=== PATIENT | female | born 1975 | race Caucasian/White ===

== ENCOUNTER 2016-12-06 10:09 | Emergency (ER) | payer OTHER ==
--- NOTE | 2016-12-06 11:09 | ED NURSING NOTES ---
Clinical Report - Nurses Merged With [facility] [address] [place] [address] 12/06/2016 10:11 Patient: JERMAINE XAVIER [facility]#: [id number] TRIAGE Triage time 10:16 Dec 06 2016. Acuity: LEVEL 3. Chief Complaint: LEFT LOWER TOOTHACHE and CHIPPED TOOTH and JAW PAIN and SWELLING OF JAW / FACE. JAVI COMA SCORE: [place] Coma Scale: 15- eyes open spontaneously (4); best verbal response- oriented x 4 (5); best motor response- obeys commands (6). --10:21 Maria T Raymundo R.N. 10:16 12/06/16. BP: 153/84. HR: 106. RR: 18. O2 saturation: 100%. Temp: 99.4 F. Pain level now 11/05. --10:21 Maria T Raymundo R.N. Weight: 63.5 kg stated. Height/Length: 69 inches Per Patient. BMI: 20.7. --10:18 Maria T Raymundo R.N. Medications Effexor XR Oral 150 mg, q day. --10:16 Maria T Raymundo R.N. Albuterol Sulfate ER Oral. --10:17 Maria T Raymundo R.N. Zofran ODT Oral. --10:17 Maria T Raymundo R.N. Calcium + D Oral. --10:17 Maria T Raymundo R.N. Allergies No Known Drug Allergy. --10:16 Maria T Raymundo R.N. History Arrived by private vehicle. Historian: patient. Accompanied by family. ( Couple months of lump under jaw and hole in tooth. Then 3 days ago pain increased and today she put a q-tip in the hole and it popped and puss began to come out.). She has had mouth sores and ear pain. Reports enlarged lymph nodes. No fever or sinus pain. She has had a toothache and swelling of the jaw. Treatment VENEER REDRIER: None. PAST MEDICAL HX: Strep throat. Dental caries. Abscess. No history of mononucleosis. Immunizations: up-to-date. Last normal menstrual period- due now. Uses an intrauterine device. SOCIAL HX: Light tobacco smoker (cigarette)- less than 1/2 a pack per day. History of drug use: marijuana. No alcohol use. SELF HARM ASSESSMENT: A self harm assessment was performed. The patient answered "no" to the question "Have you recently felt down, depressed, or hopeless?" and "Do you have thoughts of harming or killing yourself?". FALL RISK ASSESSMENT: Fall risk assessment completed. No fall risk identified. NUTRITIONAL RISK ASSESSMENT: The nutritional risk assessment revealed no deficiencies. FUNCTIONAL ASSESSMENT: Functional assessment: no impairments noted. LEARNING NEEDS ASSESSMENT: The learning needs assessment revealed no barriers. ABUSE ASSESSMENT: Abuse assessment: (yes) The patient was asked "Do you feel safe in your home?". SKIN INTEGRITY ASSESSMENT: Skin integrity risk assessment completed. No skin integrity risk identified. --10:21 Maria T Raymundo R.N. Interventions ID band on patient. --10:21 Maria T Raymundo R.N. PHYSICAL ASSESSMENT Ambulatory to room. GENERAL / NEURO / PSYCH: Alert. Oriented X 4. Appears in no acute distress. HEENT: Pupils equal, round and reactive to light. Pharynx within normal limits. Voice within normal limits. Dental decay. Mucous membranes are pink. RESPIRATORY: Respirations not labored. CVS: Capillary refill less than 2 seconds. SKIN: Skin is warm and dry. Normal skin turgor. --10:21 Maria T Raymundo R.N. NURSING PROGRESS NOTES The initial plan of care for this patient includes an assessment with efforts to address patient positioning and appropriate ambient lighting. Pulse oximeter and NIBP monitor placed on patient. Head of bed elevated 90 degrees. Reassurance given. Call light placed in reach. Side rails up x 1. Bed placed in lowest position. Brakes of bed on. --10:21 Maria T Raymundo R.N. DISPOSITION / DISCHARGE Condition at departure: stable. No learning barriers present. Discharge instructions provided and reviewed with the patient. Reviewed medication(s) side effects, precautions, dosing and course information. Prescription(s) given to the patient. Patient verbalized understanding. Written instructions provided in Amharic. The patient was discharged by the physician. She was discharged home. She left the Emergency Department ambulatory and via private vehicle. Patient driving. --11:22 Sheriff Vieyra R.N. Locked/Released at 12/06/2016 11:23 by Sheriff Vieyra R.N.
--- NOTE | 2016-12-06 11:09 | ED CLINICAL REPORT ---
Clinical Report - Physicians/Mid Levels [facility] [address] [place] [address] 12/06/2016 10:11 [id number] Time Seen: 10:57 Dec 06 2016. Arrived- By private vehicle. Historian- patient. CPT: ER phys charges level 3 (#[id number]). HISTORY OF PRESENT ILLNESS Chief Complaint: DENTAL PAIN. (Poked gum and a lot of purulent drainage came out. ( Couple months of lump under jaw and hole in tooth. Then 3 days ago pain increased and today she put a q-tip in the hole and it popped and puss began to come out.). She has had mouth sores and ear pain. Reports enlarged lymph nodes. No fever or sinus pain. She has had a toothache and swelling of the jaw.). Is still present but is improving. Pain described as moderate. No sore throat. She has had toothache (for 3 months). She has had swelling of the jaw (for 3 days). Similar symptoms previously: As bad. Diagnosed as dental abscess. Recent medical care: Not recently seen/assessed. REVIEW OF SYSTEMS No fever, eye discomfort, cough, difficulty breathing or chest pain. No nausea, headache, joint pain, skin rash or enlarged lymph nodes. No vomiting. All systems otherwise negative, except as recorded above. PAST HISTORY hx dental abscesses. Medications: Calcium + D Oral. Zofran ODT Oral. Albuterol Sulfate ER Oral. Effexor XR Oral 150 mg, q day. Allergies: No Known Drug Allergy. SOCIAL HISTORY Heavy tobacco smoker (cigarette)- less than 1 pack per day. History of occasional drug use: marijuana. No alcohol use. ADDITIONAL NOTES The nursing notes have been reviewed. PHYSICAL EXAM Vital Signs: 12/06/2016 10:16 BP: 153/84. HR: 106. RR: 18. O2 saturation: 100%. Temp: 99.4 F. Appearance: Alert. Patient in mild distress. Head: Mild swelling of the left maxilla. Eyes: Pupils equal, round and reactive to light. ENT: Moderate, localized dental decay with gingival tenderness and induration (lower left first molar). Pharynx normal. Lips normal. Gums normal. Uvula midline. Neck: Trachea midline. No adenopathy. CVS: Normal heart rate and rhythm. Heart sounds normal. Pulses normal. No cardiac murmur. Respiratory: No respiratory distress. Skin: Normal skin color. No rash. Extremities: Extremities nontender. Neuro: Oriented X 3. No motor deficit. No sensory deficit. PROGRESS AND PROCEDURES Course of Care: Pt already drained the majority of the abscess at home. Will need antibiotics and oral rinses. Needs dental follow for appropriate imaging and treatment of the tooth. Patient/family counseled. Disposition: Discharged. Condition: stable. CLINICAL IMPRESSION Periapical dental abscess with sinus tract. INSTRUCTIONS Apply moist heat for 15-20 minutes three times a day for five days until better. Warnings: Further evaluation is necessary. GENERAL WARNINGS: Return or contact your physician immediately if your condition worsens or changes unexpectedly, if not improving as expected, or if other problems arise. Your Current Medications: CONTINUE TAKING THE FOLLOWING MEDICATIONS: Albuterol Sulfate ER Oral. Calcium + D Oral. Effexor XR Oral : 150 mg q day. Zofran ODT Oral. Prescription Medications: Hydrocodone/APAP 5mg/325mg: take 1 to 2 orally every 6 hours as needed for pain. Dispense fifteen (15). No refills. Penicillin V 500mg: take 1 tab orally every 6 hours for 10 days. Dispense forty (40). No refill Follow-up: Follow up with a dentist in one week. Call for an appointment. Understanding of the discharge instructions verbalized by patient. (Electronically signed by Jace Valentin MD 12/06/2016 20:00)
--- NOTE | 2016-12-06 11:09 | ED NURSING NOTES ---
Clinical Report - Nurses [facility] [address] [place] [address] 12/06/2016 10:11 Patient: JERMAINE XAVIER [facility]#: [id number] TRIAGE Triage time 10:16 Dec 06 2016. Acuity: LEVEL 3. Chief Complaint: LEFT LOWER TOOTHACHE and CHIPPED TOOTH and JAW PAIN and SWELLING OF JAW / FACE. JAVI COMA SCORE: [place] Coma Scale: 15- eyes open spontaneously (4); best verbal response- oriented x 4 (5); best motor response- obeys commands (6). --10:21 Maria T Raymundo R.N. 10:16 12/06/16. BP: 153/84. HR: 106. RR: 18. O2 saturation: 100%. Temp: 99.4 F. Pain level now 11/05. --10:21 Maria T Raymundo R.N. Weight: 63.5 kg stated. Height/Length: 69 inches Per Patient. BMI: 20.7. --10:18 Maria T Raymundo R.N. Medications Effexor XR Oral 150 mg, q day. --10:16 Maria T Raymundo R.N. Albuterol Sulfate ER Oral. --10:17 Maria T Raymundo R.N. Zofran ODT Oral. --10:17 Maria T Raymundo R.N. Calcium + D Oral. --10:17 Maria T Raymundo R.N. Allergies No Known Drug Allergy. --10:16 Maria T Raymundo R.N. History Arrived by private vehicle. Historian: patient. Accompanied by family. ( Couple months of lump under jaw and hole in tooth. Then 3 days ago pain increased and today she put a q-tip in the hole and it popped and puss began to come out.). She has had mouth sores and ear pain. Reports enlarged lymph nodes. No fever or sinus pain. She has had a toothache and swelling of the jaw. Treatment ANESTHESIOLOGY MEDICAL DOCTOR: None. PAST MEDICAL HX: Strep throat. Dental caries. Abscess. No history of mononucleosis. Immunizations: up-to-date. Last normal menstrual period- due now. Uses an intrauterine device. SOCIAL HX: Light tobacco smoker (cigarette)- less than 1/2 a pack per day. History of drug use: marijuana. No alcohol use. SELF HARM ASSESSMENT: A self harm assessment was performed. The patient answered "no" to the question "Have you recently felt down, depressed, or hopeless?" and "Do you have thoughts of harming or killing yourself?". FALL RISK ASSESSMENT: Fall risk assessment completed. No fall risk identified. NUTRITIONAL RISK ASSESSMENT: The nutritional risk assessment revealed no deficiencies. FUNCTIONAL ASSESSMENT: Functional assessment: no impairments noted. LEARNING NEEDS ASSESSMENT: The learning needs assessment revealed no barriers. ABUSE ASSESSMENT: Abuse assessment: (yes) The patient was asked "Do you feel safe in your home?". SKIN INTEGRITY ASSESSMENT: Skin integrity risk assessment completed. No skin integrity risk identified. --10:21 Maria T Raymundo R.N. Interventions ID band on patient. --10:21 Maria T Raymundo R.N. PHYSICAL ASSESSMENT Ambulatory to room. GENERAL / NEURO / PSYCH: Alert. Oriented X 4. Appears in no acute distress. HEENT: Pupils equal, round and reactive to light. Pharynx within normal limits. Voice within normal limits. Dental decay. Mucous membranes are pink. RESPIRATORY: Respirations not labored. CVS: Capillary refill less than 2 seconds. SKIN: Skin is warm and dry. Normal skin turgor. --10:21 Maria T Raymundo R.N. NURSING PROGRESS NOTES The initial plan of care for this patient includes an assessment with efforts to address patient positioning and appropriate ambient lighting. Pulse oximeter and NIBP monitor placed on patient. Head of bed elevated 90 degrees. Reassurance given. Call light placed in reach. Side rails up x 1. Bed placed in lowest position. Brakes of bed on. --10:21 Maria T Raymundo R.N. DISPOSITION / DISCHARGE Condition at departure: stable. No learning barriers present. Discharge instructions provided and reviewed with the patient. Reviewed medication(s) side effects, precautions, dosing and course information. Prescription(s) given to the patient. Patient verbalized understanding. Written instructions provided in Slovak. The patient was discharged by the physician. She was discharged home. She left the Emergency Department ambulatory and via private vehicle. Patient driving. --11:22 Sheriff Vieyra R.N. Locked/Released at 12/06/2016 11:23 by Sheriff Vieyra R.N.
--- NOTE | 2016-12-06 11:09 | ED CLINICAL REPORT ---
Clinical Report - Physicians/Mid Levels [facility] [address] [place] [address] 12/06/2016 10:11 [id number] Time Seen: 10:57 Dec 06 2016. Arrived- By private vehicle. Historian- patient. CPT: ER phys charges level 3 (#[id number]). HISTORY OF PRESENT ILLNESS Chief Complaint: DENTAL PAIN. (Poked gum and a lot of purulent drainage came out. ( Couple months of lump under jaw and hole in tooth. Then 3 days ago pain increased and today she put a q-tip in the hole and it popped and puss began to come out.). She has had mouth sores and ear pain. Reports enlarged lymph nodes. No fever or sinus pain. She has had a toothache and swelling of the jaw.). Is still present but is improving. Pain described as moderate. No sore throat. She has had toothache (for 3 months). She has had swelling of the jaw (for 3 days). Similar symptoms previously: As bad. Diagnosed as dental abscess. Recent medical care: Not recently seen/assessed. REVIEW OF SYSTEMS No fever, eye discomfort, cough, difficulty breathing or chest pain. No nausea, headache, joint pain, skin rash or enlarged lymph nodes. No vomiting. All systems otherwise negative, except as recorded above. PAST HISTORY hx dental abscesses. Medications: Calcium + D Oral. Zofran ODT Oral. Albuterol Sulfate ER Oral. Effexor XR Oral 150 mg, q day. Allergies: No Known Drug Allergy. SOCIAL HISTORY Heavy tobacco smoker (cigarette)- less than 1 pack per day. History of occasional drug use: marijuana. No alcohol use. ADDITIONAL NOTES The nursing notes have been reviewed. PHYSICAL EXAM Vital Signs: 12/06/2016 10:16 BP: 153/84. HR: 106. RR: 18. O2 saturation: 100%. Temp: 99.4 F. Appearance: Alert. Patient in mild distress. Head: Mild swelling of the left maxilla. Eyes: Pupils equal, round and reactive to light. ENT: Moderate, localized dental decay with gingival tenderness and induration (lower left first molar). Pharynx normal. Lips normal. Gums normal. Uvula midline. Neck: Trachea midline. No adenopathy. CVS: Normal heart rate and rhythm. Heart sounds normal. Pulses normal. No cardiac murmur. Respiratory: No respiratory distress. Skin: Normal skin color. No rash. Extremities: Extremities nontender. Neuro: Oriented X 3. No motor deficit. No sensory deficit. PROGRESS AND PROCEDURES Course of Care: Pt already drained the majority of the abscess at home. Will need antibiotics and oral rinses. Needs dental follow for appropriate imaging and treatment of the tooth. Patient/family counseled. Disposition: Discharged. Condition: stable. CLINICAL IMPRESSION Periapical dental abscess with sinus tract. INSTRUCTIONS Apply moist heat for 15-20 minutes three times a day for five days until better. Warnings: Further evaluation is necessary. GENERAL WARNINGS: Return or contact your physician immediately if your condition worsens or changes unexpectedly, if not improving as expected, or if other problems arise. Your Current Medications: CONTINUE TAKING THE FOLLOWING MEDICATIONS: Albuterol Sulfate ER Oral. Calcium + D Oral. Effexor XR Oral : 150 mg q day. Zofran ODT Oral. Prescription Medications: Hydrocodone/APAP 5mg/325mg: take 1 to 2 orally every 6 hours as needed for pain. Dispense fifteen (15). No refills. Penicillin V 500mg: take 1 tab orally every 6 hours for 10 days. Dispense forty (40). No refill Follow-up: Follow up with a dentist in one week. Call for an appointment. Understanding of the discharge instructions verbalized by patient. (Electronically signed by Jace Valentin MD 12/06/2016 20:00)
--- NOTE | 2016-12-06 20:00 | ED MED RECONCILIATION SUMMARY ---
Patient: JERMAINE XAVIER Medication Reconciliation Report [facility] VisitID: [id number] [address] [place] [address] 41y, F Registration Date/Time: 12/06/2016 Weight: 63.5 kg Height/Length: 69 in. BMI: 20.7 ALLERGIES: No Known Drug Allergy The patient's Home Medications are listed below: CONTINUE TAKING THE FOLLOWING MEDICATIONS: Albuterol Sulfate ER Oral Calcium + D Oral Effexor XR Oral 150 mg, q day Zofran ODT Oral The source(s) of the original Home Medication information: Not obtained. The following Medications were given to the patient in the Emergency Department: None. The following Medications were prescribed to the patient: Hydrocodone/APAP 5mg/325mg: take 1 to 2 orally every 6 hours as needed for pain. Dispense fifteen (15). No refills. -- Jace Valentin MD Penicillin V 500mg: take 1 tab orally every 6 hours for 10 days. Dispense forty (40). No refill -- Jace Valentin MD
--- NOTE | 2016-12-06 20:00 | ED DISCHARGE INSTRUCTIONS ---
Patient: JERMAINE XAVIER General Instructions [facility] VisitID: [id number] [place] [address] 41y, F Registration Date/Time: 12/06/2016 Periapical dental abscess with sinus tract. INSTRUCTIONS Apply moist heat for 15-20 minutes three times a day for five days until better. Warnings: Further evaluation is necessary. GENERAL WARNINGS: Return or contact your physician immediately if your condition worsens or changes unexpectedly, if not improving as expected, or if other problems arise. Your Current Medications: CONTINUE TAKING THE FOLLOWING MEDICATIONS: Albuterol Sulfate ER Oral. Calcium + D Oral. Effexor XR Oral : 150 mg q day. Zofran ODT Oral. Prescription Medications: Hydrocodone/APAP 5mg/325mg: take 1 to 2 orally every 6 hours as needed for pain. Dispense fifteen (15). No refills. Penicillin V 500mg: take 1 tab orally every 6 hours for 10 days. Dispense forty (40). No refill Follow-up: Follow up with a dentist in one week. Call for an appointment. Understanding of the discharge instructions verbalized by patient. ADDITIONAL INFORMATION Dental Abscess With Facial Cellulitis A dental abscess is an infection at the base of a tooth. When this is untreated, it spreads to the gum near the tooth causing swelling and pain. More severe infections cause facial swelling as the bacteria spread to the nearby tissues of the face. This is a very serious condition. Once the swelling begins, it can spread rapidly. A dental abscess usually starts with a crack or cavity in the tooth. The pain is often made worse by drinking hot or cold fluids, or biting on hard foods and may spread from the tooth to the ear or jaw on the same side. Home Care: Avoid hot and cold foods and liquids since your tooth may be sensitive to temperature changes. If your tooth is chipped or cracked, or if there is a large open cavity, apply oil of cloves or oil of peppermint (available [id number] in drug stores) directly to the tooth to reduce pain. Some pharmacies carry an [id number] toothache kit. This contains a paste, which can be applied over the exposed tooth to decrease sensitivity. A cold pack on your jaw over the sore area may help reduce pain. You may use acetaminophen (Tylenol) or ibuprofen (Motrin, Advil) to control pain, unless another medicine was prescribed. [NOTE: If you have chronic liver or kidney disease or ever had a stomach ulcer or GI bleeding, talk with your doctor before using these medicines.] An antibiotic will be prescribed. Take it exactly as directed. Do not miss any doses. Follow-Up as advised with a dentist or oral surgeon. Severe cases of cellulitis must be checked again within 24 hours. Once an infection occurs in a tooth, it will continue to be a problem until the infection is drained (surgery or root canal) or the tooth is pulled. Get Prompt Medical Attention if any of the following occur: Swelling spreads to the upper half of your face or your eyelids begin to swell shut Pain worsens or spreads to the neck Fever of 100.4F (38C) or higher, or as directed by your healthcare provider Unusual drowsiness, headache or a stiff neck; weakness or fainting Difficulty swallowing or breathing You have been given the following additional information: Dental Abscess W/ Facial Cellulitis (Electronically signed by Jace Valentin MD 12/06/2016 20:00)
--- NOTE | 2016-12-06 20:00 | ED MAR SUMMARY ---
..... Medication Administration Record [facility] [address] [place] [address] Patient: JERMAINE XAVIER Visit ID: [id number] 41y, F Weight: 63.5 kg Height/Length: 69 in BMI: 20.7 ALLERGIES: No Known Drug Allergy
--- NOTE | 2016-12-06 20:00 | ED MED RECONCILIATION SUMMARY ---
Patient: JERMAINE XAVIER Medication Reconciliation Report [facility] VisitID: [id number] [address] [place] [address] 41y, F Registration Date/Time: 12/06/2016 Weight: 63.5 kg Height/Length: 69 in. BMI: 20.7 ALLERGIES: No Known Drug Allergy The patient's Home Medications are listed below: CONTINUE TAKING THE FOLLOWING MEDICATIONS: Albuterol Sulfate ER Oral Calcium + D Oral Effexor XR Oral 150 mg, q day Zofran ODT Oral The source(s) of the original Home Medication information: Not obtained. The following Medications were given to the patient in the Emergency Department: None. The following Medications were prescribed to the patient: Hydrocodone/APAP 5mg/325mg: take 1 to 2 orally every 6 hours as needed for pain. Dispense fifteen (15). No refills. -- Jace Valentin MD Penicillin V 500mg: take 1 tab orally every 6 hours for 10 days. Dispense forty (40). No refill -- Jace Valentin MD
--- NOTE | 2016-12-06 20:00 | ED DISCHARGE INSTRUCTIONS ---
Patient: JERMAINE XAVIER General Instructions [facility] VisitID: [id number] [place] [address] 41y, F Registration Date/Time: 12/06/2016 Periapical dental abscess with sinus tract. INSTRUCTIONS Apply moist heat for 15-20 minutes three times a day for five days until better. Warnings: Further evaluation is necessary. GENERAL WARNINGS: Return or contact your physician immediately if your condition worsens or changes unexpectedly, if not improving as expected, or if other problems arise. Your Current Medications: CONTINUE TAKING THE FOLLOWING MEDICATIONS: Albuterol Sulfate ER Oral. Calcium + D Oral. Effexor XR Oral : 150 mg q day. Zofran ODT Oral. Prescription Medications: Hydrocodone/APAP 5mg/325mg: take 1 to 2 orally every 6 hours as needed for pain. Dispense fifteen (15). No refills. Penicillin V 500mg: take 1 tab orally every 6 hours for 10 days. Dispense forty (40). No refill Follow-up: Follow up with a dentist in one week. Call for an appointment. Understanding of the discharge instructions verbalized by patient. ADDITIONAL INFORMATION Dental Abscess With Facial Cellulitis A dental abscess is an infection at the base of a tooth. When this is untreated, it spreads to the gum near the tooth causing swelling and pain. More severe infections cause facial swelling as the bacteria spread to the nearby tissues of the face. This is a very serious condition. Once the swelling begins, it can spread rapidly. A dental abscess usually starts with a crack or cavity in the tooth. The pain is often made worse by drinking hot or cold fluids, or biting on hard foods and may spread from the tooth to the ear or jaw on the same side. Home Care: Avoid hot and cold foods and liquids since your tooth may be sensitive to temperature changes. If your tooth is chipped or cracked, or if there is a large open cavity, apply oil of cloves or oil of peppermint (available tqoh-vqi-mlfsnbh in drug stores) directly to the tooth to reduce pain. Some pharmacies carry an fzdw-wby-nkwvsnx toothache kit. This contains a paste, which can be applied over the exposed tooth to decrease sensitivity. A cold pack on your jaw over the sore area may help reduce pain. You may use acetaminophen (Tylenol) or ibuprofen (Motrin, Advil) to control pain, unless another medicine was prescribed. [NOTE: If you have chronic liver or kidney disease or ever had a stomach ulcer or GI bleeding, talk with your doctor before using these medicines.] An antibiotic will be prescribed. Take it exactly as directed. Do not miss any doses. Follow-Up as advised with a dentist or oral surgeon. Severe cases of cellulitis must be checked again within 24 hours. Once an infection occurs in a tooth, it will continue to be a problem until the infection is drained (surgery or root canal) or the tooth is pulled. Get Prompt Medical Attention if any of the following occur: Swelling spreads to the upper half of your face or your eyelids begin to swell shut Pain worsens or spreads to the neck Fever of 100.4F (38C) or higher, or as directed by your healthcare provider Unusual drowsiness, headache or a stiff neck; weakness or fainting Difficulty swallowing or breathing You have been given the following additional information: Dental Abscess W/ Facial Cellulitis (Electronically signed by Jace Valentin MD 12/06/2016 20:00)
--- NOTE | 2016-12-06 20:00 | ED MAR SUMMARY ---
..... Medication Administration Record [facility] [address] [place] [address] Patient: JERMAINE XAVIER Visit ID: [id number] 41y, F Weight: 63.5 kg Height/Length: 69 in BMI: 20.7 ALLERGIES: No Known Drug Allergy
== END 2016-12-06 11:15 | disposition home or self-care (01) ==
LOC: ED SRH 10:09
DX: K04.6 Periapical abscess with sinus (principal); F17.210 Nicotine dependence, cigarettes, uncomplicated; Z79.899 Other long term (current) drug therapy

== ENCOUNTER 2016-12-29 20:00 | Emergency (ER) | payer OTHER ==
--- NOTE | 2016-12-29 20:18 | ED NURSING NOTES ---
Clinical Report - Nurses [facility] [address] [place] [address] 12/29/2016 20:01 [id number] Triage time 20:Dec 29 2016. Acuity: LEVEL 4. Chief Complaint: LEFT LOWER TOOTHACHE. Alert. No acute distress. --20:10 Leila Vásquez R.N. 20:10 12/29/16. BP: 130/88. HR: 95. RR: 16. O2 saturation: 100%. Temp: 98.9 F. Pain level now: 02/04. --20:10 Leila Vásquez R.N. Weight: 63.5 kg stated. Height/Length: 69 inches Per Patient. BMI: 20.7. --20:08 Leila Vásquez R.N. Medications Albuterol Sulfate ER Oral. Calcium + D Oral. Effexor XR Oral 150 mg, q day. Zofran ODT Oral. --20:07 Leila Vásquez R.N. Aspirin Oral. --20:08 Leila Vásquez R.N. Medication/allergy information source: the patient. --20:10 Leila Vásquez R.N. Allergies No Known Drug Allergy. --20:07 Leila Vásquez R.N. History Arrived by private vehicle. Historian: patient. Accompanied by family. Symptoms still present (about 1 months). 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 PAST MEDICAL HX: Immunizations: up-to-date. Last normal menstrual period was 4 weeks ago. Denies current . SOCIAL HX: Current every day light tobacco smoker (cigarette)- less than 1/2 a pack per day. No alcohol use or drug use. No infectious disease exposure. SELF HARM ASSESSMENT: A self harm assessment was performed. The patient answered "no" to the question "Do you have thoughts of harming or killing yourself?". FALL RISK ASSESSMENT: Fall risk assessment completed. No fall risk identified. NUTRITIONAL RISK ASSESSMENT: The nutritional risk assessment revealed no deficiencies. FUNCTIONAL ASSESSMENT: Functional assessment: no impairments noted. LEARNING NEEDS ASSESSMENT: The learning needs assessment revealed no barriers. ABUSE ASSESSMENT: Abuse assessment: The patient was asked "Do you feel safe in your home?". SKIN INTEGRITY ASSESSMENT: Skin integrity risk assessment completed. No skin integrity risk identified. --20:10 Leila Vásquez R.N. PROBLEMS: Dental Abscess. Dental Caries. Abscess. Strep Throat. Contusion. Acute Pain. Humerus Fracture. Conjunctivitis. Depression. --20:08 Leila Vásquez R.N. ADDITIONAL SURGERIES: Dental Surgery. --20:08 Leila Vásquez R.N. Interventions ID band on patient. To room. --20:10 Leila Vásquez R.N. PHYSICAL ASSESSMENT Ambulatory to room. GENERAL / NEURO / PSYCH: Alert. Oriented X 4. Appears in no acute distress. HEENT: Pharynx within normal limits. Voice within normal limits. Dental tenderness of a single tooth (left lower molar). RESPIRATORY: Respirations not labored. SKIN: Skin is warm and dry. --20:12 Leila Vásquez R.N. NURSING PROGRESS NOTES Head of bed elevated. Patient identifiers checked. Call light placed in reach. Bed placed in lowest position. Brakes of bed on. --20:12 Leila Vásquez R.N. DISPOSITION / DISCHARGE Condition at departure: improved and stable. No learning barriers present. Discharge instructions provided and reviewed with the patient. Reviewed medication(s) side effects, precautions, dosing and course information. Prescription(s) given to the patient. Reviewed referral to a dentist. Patient verbalized understanding. Written instructions provided in Panamanian. The patient was discharged home and accompanied by family. She left the Emergency Department via private vehicle. Family member driving. --20:24 Lubna Vyas R.N. 20:24 12/29/16. BP: deferred. HR: deferred. RR: deferred. O2 saturation: deferred. Temp: deferred. Pain level now deferred. --20:24 Lubna Vyas R.N. Departure time: 2019. --20:25 Lubna Vyas R.N. Locked/Released at 12/29/2016 20:25 by Lubna Vyas R.N.
--- NOTE | 2016-12-29 20:18 | ED CLINICAL REPORT ---
Clinical Report - Physicians/Mid Levels [facility] [address] [place] [address] 12/29/2016 20:01 Patient: JERMAINE XAVIER Time Seen: 20:12. Arrived- By private vehicle. Historian- patient. HISTORY OF PRESENT ILLNESS Chief Complaint: DENTAL PAIN. This started about 1 months ago and is still present. Pain described as moderate. No sore throat, mouth sores or swollen jaw or face. She has had toothache. Similar symptoms previously: Recent medical care: The patient was seen recently at this facility in the emergency department. REVIEW OF SYSTEMS Last normal menstrual period- 4 weeks. Not sexually active. No fever, difficulty breathing, nausea, diarrhea or vomiting. PAST HISTORY See nurses notes. Abstinent-no chance of preg Established pt w/ [facility]-but they are few months out. PCN rx did not help sx. No history of heart disease, lung disease, hypertension or diabetes mellitus. Surgeries: Dental surgery. Medications: Aspirin Oral. Albuterol Sulfate ER Oral. Calcium + D Oral. Effexor XR Oral 150 mg, q day. Zofran ODT Oral. Allergies: No Known Drug Allergy. SOCIAL HISTORY Light tobacco smoker (cigarette)- less than 1/2 a pack per day. No alcohol use or drug use. ADDITIONAL NOTES The nursing notes have been reviewed. PHYSICAL EXAM Vital Signs: 12/29/2016 20:10 BP: 130/88. HR: 95. RR: 16. O2 saturation: 100%. Temp: 98.9 F. Pain level now: 7/10. Have been reviewed and appear to be correct. Appearance: Alert. No acute distress. Head: Normal external inspection. Eyes: Pupils equal, round and reactive to light. Conjunctivae and eyelids normal. ENT: Dental decay. Moderate dental tenderness of a single tooth with gingival tenderness and swelling (lower left second molar). Ears normal. Nose normal. Pharynx normal. Lips normal. Uvula midline. No pharyngeal erythema. Neck: Neck supple. No lymphadenopathy or meningeal signs. CVS: Normal heart rate and rhythm. Respiratory: No respiratory distress. Skin: Normal skin color. No rash. Normal skin turgor. Neuro: Oriented X 3. PROGRESS AND PROCEDURES Course of Care: No GUNJAN report. Seen here x 1-not improved w/ PCN Discussed how to access urgent dental care. Patient is stable. Patient and family counseled in person regarding the patient's condition and need for follow-up. Old ED records reviewed. Disposition: Discharged. Condition: stable. CLINICAL IMPRESSION Periapical dental abscess. No sinus tract or Artur's angina. INSTRUCTIONS Drink plenty of fluids. (We will not be able to give you pain medication for this again. Please establish with a dentist. [facility] ([phone]) and [facility] are sliding scale and both have walkin for urgent needs; [facility] and [facility] are local options that are reasonable in cost and can get you in soon.). Warnings: GENERAL WARNINGS: Return or contact your physician immediately if your condition worsens or changes unexpectedly, if not improving as expected, or if other problems arise. Your Current Medications: CONTINUE TAKING THE FOLLOWING MEDICATIONS: Albuterol Sulfate ER Oral. Aspirin Oral. Calcium + D Oral. Effexor XR Oral : 150 mg q day. Zofran ODT Oral. Prescription Medications: Hydrocodone/APAP 5mg / 325mg: take 1 orally every 6 hours as needed for pain. Dispense twelve (12). No refill. Cleocin 300 mg: take 1 capsule orally every 6 hours for 10 days. No refill. Chlorhexedine gluconate oral rinse: swish 15ml x30 seconds [id number], then 2-3 days per week, #360ml. Follow-up: Follow up with a specialist even if well. Call for the next available appointment. Understanding of the discharge instructions verbalized by patient. (Electronically signed by Shruthi Jacobsen A.R.N.P. 12/29/2016 20:23)
--- NOTE | 2016-12-29 20:18 | ED CLINICAL REPORT ---
Clinical Report - Physicians/Mid Levels [facility] [address] [place] [address] 12/29/2016 20:01 Patient: JERMAINE XAVIER Time Seen: 20:12. Arrived- By private vehicle. Historian- patient. HISTORY OF PRESENT ILLNESS Chief Complaint: DENTAL PAIN. This started about 1 months ago and is still present. Pain described as moderate. No sore throat, mouth sores or swollen jaw or face. She has had toothache. Similar symptoms previously: Recent medical care: The patient was seen recently at this facility in the emergency department. REVIEW OF SYSTEMS Last normal menstrual period- 4 weeks. Not sexually active. No fever, difficulty breathing, nausea, diarrhea or vomiting. PAST HISTORY See nurses notes. Abstinent-no chance of preg Established pt w/ [facility]-but they are few months out. PCN rx did not help sx. No history of heart disease, lung disease, hypertension or diabetes mellitus. Surgeries: Dental surgery. Medications: Aspirin Oral. Albuterol Sulfate ER Oral. Calcium + D Oral. Effexor XR Oral 150 mg, q day. Zofran ODT Oral. Allergies: No Known Drug Allergy. SOCIAL HISTORY Light tobacco smoker (cigarette)- less than 1/2 a pack per day. No alcohol use or drug use. ADDITIONAL NOTES The nursing notes have been reviewed. PHYSICAL EXAM Vital Signs: 12/29/2016 20:10 BP: 130/88. HR: 95. RR: 16. O2 saturation: 100%. Temp: 98.9 F. Pain level now: 7/10. Have been reviewed and appear to be correct. Appearance: Alert. No acute distress. Head: Normal external inspection. Eyes: Pupils equal, round and reactive to light. Conjunctivae and eyelids normal. ENT: Dental decay. Moderate dental tenderness of a single tooth with gingival tenderness and swelling (lower left second molar). Ears normal. Nose normal. Pharynx normal. Lips normal. Uvula midline. No pharyngeal erythema. Neck: Neck supple. No lymphadenopathy or meningeal signs. CVS: Normal heart rate and rhythm. Respiratory: No respiratory distress. Skin: Normal skin color. No rash. Normal skin turgor. Neuro: Oriented X 3. PROGRESS AND PROCEDURES Course of Care: No GUNJAN report. Seen here x 1-not improved w/ PCN Discussed how to access urgent dental care. Patient is stable. Patient and family counseled in person regarding the patient's condition and need for follow-up. Old ED records reviewed. Disposition: Discharged. Condition: stable. CLINICAL IMPRESSION Periapical dental abscess. No sinus tract or Artur's angina. INSTRUCTIONS Drink plenty of fluids. (We will not be able to give you pain medication for this again. Please establish with a dentist. [facility] ([id number]) and [facility] are sliding scale and both have walkin for urgent needs; [facility] and [facility] are local options that are reasonable in cost and can get you in soon.). Warnings: GENERAL WARNINGS: Return or contact your physician immediately if your condition worsens or changes unexpectedly, if not improving as expected, or if other problems arise. Your Current Medications: CONTINUE TAKING THE FOLLOWING MEDICATIONS: Albuterol Sulfate ER Oral. Aspirin Oral. Calcium + D Oral. Effexor XR Oral : 150 mg q day. Zofran ODT Oral. Prescription Medications: Hydrocodone/APAP 5mg / 325mg: take 1 orally every 6 hours as needed for pain. Dispense twelve (12). No refill. Cleocin 300 mg: take 1 capsule orally every 6 hours for 10 days. No refill. Chlorhexedine gluconate oral rinse: swish 15ml x30 seconds [id number], then 2-3 days per week, #360ml. Follow-up: Follow up with a specialist even if well. Call for the next available appointment. Understanding of the discharge instructions verbalized by patient. (Electronically signed by Shruthi Jacobsen A.R.N.P. 12/29/2016 20:23)
--- NOTE | 2016-12-29 20:18 | ED NURSING NOTES ---
Clinical Report - Nurses [facility] [address] [place] [address] 12/29/2016 20:01 [id number] Triage time 20:Dec 29 2016. Acuity: LEVEL 4. Chief Complaint: LEFT LOWER TOOTHACHE. Alert. No acute distress. --20:10 Leila Vásquez R.N. 20:10 12/29/16. BP: 130/88. HR: 95. RR: 16. O2 saturation: 100%. Temp: 98.9 F. Pain level now: 02/04. --20:10 Leila Vásquez R.N. Weight: 63.5 kg stated. Height/Length: 69 inches Per Patient. BMI: 20.7. --20:08 Leila Vásquez R.N. Medications Albuterol Sulfate ER Oral. Calcium + D Oral. Effexor XR Oral 150 mg, q day. Zofran ODT Oral. --20:07 Leila Vásquez R.N. Aspirin Oral. --20:08 Leila Vásquez R.N. Medication/allergy information source: the patient. --20:10 Leila Vásquez R.N. Allergies No Known Drug Allergy. --20:07 Leila Vásquez R.N. History Arrived by private vehicle. Historian: patient. Accompanied by family. Symptoms still present (about 1 months). 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 PAST MEDICAL HX: Immunizations: up-to-date. Last normal menstrual period was 4 weeks ago. Denies current . SOCIAL HX: Current every day light tobacco smoker (cigarette)- less than 1/2 a pack per day. No alcohol use or drug use. No infectious disease exposure. SELF HARM ASSESSMENT: A self harm assessment was performed. The patient answered "no" to the question "Do you have thoughts of harming or killing yourself?". FALL RISK ASSESSMENT: Fall risk assessment completed. No fall risk identified. NUTRITIONAL RISK ASSESSMENT: The nutritional risk assessment revealed no deficiencies. FUNCTIONAL ASSESSMENT: Functional assessment: no impairments noted. LEARNING NEEDS ASSESSMENT: The learning needs assessment revealed no barriers. ABUSE ASSESSMENT: Abuse assessment: The patient was asked "Do you feel safe in your home?". SKIN INTEGRITY ASSESSMENT: Skin integrity risk assessment completed. No skin integrity risk identified. --20:10 Leila Vásquez R.N. PROBLEMS: Dental Abscess. Dental Caries. Abscess. Strep Throat. Contusion. Acute Pain. Humerus Fracture. Conjunctivitis. Depression. --20:08 Leila Vásquez R.N. ADDITIONAL SURGERIES: Dental Surgery. --20:08 Leila Vásquez R.N. Interventions ID band on patient. To room. --20:10 Leila Vásquez R.N. PHYSICAL ASSESSMENT Ambulatory to room. GENERAL / NEURO / PSYCH: Alert. Oriented X 4. Appears in no acute distress. HEENT: Pharynx within normal limits. Voice within normal limits. Dental tenderness of a single tooth (left lower molar). RESPIRATORY: Respirations not labored. SKIN: Skin is warm and dry. --20:12 Leila Vásquez R.N. NURSING PROGRESS NOTES Head of bed elevated. Patient identifiers checked. Call light placed in reach. Bed placed in lowest position. Brakes of bed on. --20:12 Leila Vásquez R.N. DISPOSITION / DISCHARGE Condition at departure: improved and stable. No learning barriers present. Discharge instructions provided and reviewed with the patient. Reviewed medication(s) side effects, precautions, dosing and course information. Prescription(s) given to the patient. Reviewed referral to a dentist. Patient verbalized understanding. Written instructions provided in [place]. The patient was discharged home and accompanied by family. She left the Emergency Department via private vehicle. Family member driving. --20:24 Lubna Vyas R.N. 20:24 12/29/16. BP: deferred. HR: deferred. RR: deferred. O2 saturation: deferred. Temp: deferred. Pain level now deferred. --20:24 Lubna Vyas R.N. Departure time: 2019. --20:25 Lubna Vyas R.N. Locked/Released at 12/29/2016 20:25 by Lubna Vyas R.N.
--- NOTE | 2016-12-29 20:25 | ED MAR SUMMARY ---
..... Medication Administration Record [facility] [address] [place] [address] Patient: JERMAINE XAVIER Visit ID: [id number] 41y, F Weight: 63.5 kg Height/Length: 69 in BMI: 20.7 ALLERGIES: No Known Drug Allergy
--- NOTE | 2016-12-29 20:25 | ED MED RECONCILIATION SUMMARY ---
Patient: JERMAINE XAVIER Medication Reconciliation Report [facility] VisitID: [id number] [address] [place] [address] 41y, F Registration Date/Time: 12/29/2016 Weight: 63.5 kg Height/Length: 69 in. BMI: 20.7 ALLERGIES: No Known Drug Allergy The patient's Home Medications are listed below: CONTINUE TAKING THE FOLLOWING MEDICATIONS: Albuterol Sulfate ER Oral Aspirin Oral Calcium + D Oral Effexor XR Oral 150 mg, q day Zofran ODT Oral The source(s) of the original Home Medication information: patient The following Medications were given to the patient in the Emergency Department: None. The following Medications were prescribed to the patient: Hydrocodone/APAP 5mg / 325mg: take 1 orally every 6 hours as needed for pain. Dispense twelve (12). No refill. -- Shruthi Jacobsen A.RYifanNYifanP. Cleocin 300 mg: take 1 capsule orally every 6 hours for 10 days. No refill. -- Shruthi Jacobsen A.R.N.P. Chlorhexedine gluconate oral rinse: swish 15ml x30 seconds [id number], then 2-3 days per week, #360ml. -- Shruthi Jacobsen A.R.N.P.
--- NOTE | 2016-12-29 20:25 | ED MED RECONCILIATION SUMMARY ---
Patient: JERMAINE XAVIER Medication Reconciliation Report [facility] VisitID: [id number] [address] [place] [address] 41y, F Registration Date/Time: 12/29/2016 Weight: 63.5 kg Height/Length: 69 in. BMI: 20.7 ALLERGIES: No Known Drug Allergy The patient's Home Medications are listed below: CONTINUE TAKING THE FOLLOWING MEDICATIONS: Albuterol Sulfate ER Oral Aspirin Oral Calcium + D Oral Effexor XR Oral 150 mg, q day Zofran ODT Oral The source(s) of the original Home Medication information: patient The following Medications were given to the patient in the Emergency Department: None. The following Medications were prescribed to the patient: Hydrocodone/APAP 5mg / 325mg: take 1 orally every 6 hours as needed for pain. Dispense twelve (12). No refill. -- Shruthi Jacobsen A.RYifanNYifanP. Cleocin 300 mg: take 1 capsule orally every 6 hours for 10 days. No refill. -- Shruthi Jacobsen A.R.N.P. Chlorhexedine gluconate oral rinse: swish 15ml x30 seconds [id number], then 2-3 days per week, #360ml. -- Shruthi Jacobsen A.R.N.P.
--- NOTE | 2016-12-29 20:25 | ED DISCHARGE INSTRUCTIONS ---
Patient: JERMAINE XAVIER General Instructions [facility] VisitID: [id number] [place] [address] 41y, F Registration Date/Time: 12/29/2016 Periapical dental abscess. No sinus tract or Artur's angina. INSTRUCTIONS Drink plenty of fluids. (We will not be able to give you pain medication for this again. Please establish with a dentist. [facility] ([id number]) and [facility] are sliding scale and both have walkin for urgent needs; [facility] and [facility] are local options that are reasonable in cost and can get you in soon.). Warnings: GENERAL WARNINGS: Return or contact your physician immediately if your condition worsens or changes unexpectedly, if not improving as expected, or if other problems arise. Your Current Medications: CONTINUE TAKING THE FOLLOWING MEDICATIONS: Albuterol Sulfate ER Oral. Aspirin Oral. Calcium + D Oral. Effexor XR Oral : 150 mg q day. Zofran ODT Oral. Prescription Medications: Hydrocodone/APAP 5mg / 325mg: take 1 orally every 6 hours as needed for pain. Dispense twelve (12). No refill. Cleocin 300 mg: take 1 capsule orally every 6 hours for 10 days. No refill. Chlorhexedine gluconate oral rinse: swish 15ml x30 seconds [id number], then 2-3 days per week, #360ml. Follow-up: Follow up with a specialist even if well. Call for the next available appointment. Understanding of the discharge instructions verbalized by patient. ADDITIONAL INFORMATION Dental Abscess A dental abscess is an infection of the tooth socket. It often starts with a crack or cavity in the tooth. A pocket of pus forms between the tooth and the bone. The infection causes pain and swelling of the gum, cheek or jaw. The pain is often made worse by drinking hot or cold fluids, or biting on hard foods. Pain may be felt in the facial sinus or in the ear. A severe infection can interfere with swallowing and breathing. In the emergency department or clinic, you will be started on an antibiotic. However, final treatment requires drainage of the pus. This can be done by removing the tooth or performing a root canal. A root canal is done by an oral surgeon and involves drilling an opening in the tooth to drain the pus. After the infection has healed, a crown is placed over the tooth. Home care The following guidelines will help you care for your abscess at home: Avoid hot and cold foods and liquids since your tooth may be sensitive to temperature changes. If your tooth is chipped or cracked, or if there is a large open cavity, applyoil of cloves(available tnvg-hkh-pwvtjca in drug stores) directly to the tooth to reduce pain. Some pharmacies carry an rqfq-wci-txynljb "toothache kit". This contains oil of cloves and a paste, which can be applied over the exposed tooth to decrease sensitivity. Apply an ice pack (ice cubes in a plastic bag, wrapped in a towel) over the injured area for 20 minutes every 12 hours the first day for pain relief. Continue this 34 times a day until the pain and swelling goes away. You may use acetaminophen or ibuprofen to control pain, unless another medicine was prescribed. If you have chronic liver or kidney disease or ever had a stomach ulcer or GI bleeding, talk with your doctor before using these medicines. An antibiotic will be prescribed. Take it as directed until completed, even if you are feeling better sooner. Follow-up care Follow up as directed with a dentist or oral surgeon. Even though your pain may improve with the treatment given today, only a dentist or oral surgeon can provide full treatment for this problem. When to seek medical care Get prompt medical attention or contact your doctor if any of the following occur: Your face or eyelid becomes swollen or red Pain worsens or spreads to the neck Fever over 100.4F (38.0C) Unusual drowsiness; headache or stiff neck; weakness, or fainting Pus drains from the gum or tooth Difficulty talking, swallowing or breathing Unable to open your mouth wide You have been given the following additional information: Tooth Abscess (Electronically signed by Shruthi Jacobsen A.R.N.P. 12/29/2016 20:23)
--- NOTE | 2016-12-29 20:25 | ED MAR SUMMARY ---
..... Medication Administration Record [facility] [address] [place] [address] Patient: JERMAINE XAVIER Visit ID: [id number] 41y, F Weight: 63.5 kg Height/Length: 69 in BMI: 20.7 ALLERGIES: No Known Drug Allergy
--- NOTE | 2016-12-29 20:25 | ED DISCHARGE INSTRUCTIONS ---
Patient: JERMAINE XAVIER General Instructions [facility] VisitID: [id number] [place] [address] 41y, F Registration Date/Time: 12/29/2016 Periapical dental abscess. No sinus tract or Artur's angina. INSTRUCTIONS Drink plenty of fluids. (We will not be able to give you pain medication for this again. Please establish with a dentist. [facility] ([phone]) and [facility] are sliding scale and both have walkin for urgent needs; [facility] and [facility] are local options that are reasonable in cost and can get you in soon.). Warnings: GENERAL WARNINGS: Return or contact your physician immediately if your condition worsens or changes unexpectedly, if not improving as expected, or if other problems arise. Your Current Medications: CONTINUE TAKING THE FOLLOWING MEDICATIONS: Albuterol Sulfate ER Oral. Aspirin Oral. Calcium + D Oral. Effexor XR Oral : 150 mg q day. Zofran ODT Oral. Prescription Medications: Hydrocodone/APAP 5mg / 325mg: take 1 orally every 6 hours as needed for pain. Dispense twelve (12). No refill. Cleocin 300 mg: take 1 capsule orally every 6 hours for 10 days. No refill. Chlorhexedine gluconate oral rinse: swish 15ml x30 seconds [id number], then 2-3 days per week, #360ml. Follow-up: Follow up with a specialist even if well. Call for the next available appointment. Understanding of the discharge instructions verbalized by patient. ADDITIONAL INFORMATION Dental Abscess A dental abscess is an infection of the tooth socket. It often starts with a crack or cavity in the tooth. A pocket of pus forms between the tooth and the bone. The infection causes pain and swelling of the gum, cheek or jaw. The pain is often made worse by drinking hot or cold fluids, or biting on hard foods. Pain may be felt in the facial sinus or in the ear. A severe infection can interfere with swallowing and breathing. In the emergency department or clinic, you will be started on an antibiotic. However, final treatment requires drainage of the pus. This can be done by removing the tooth or performing a root canal. A root canal is done by an oral surgeon and involves drilling an opening in the tooth to drain the pus. After the infection has healed, a crown is placed over the tooth. Home care The following guidelines will help you care for your abscess at home: Avoid hot and cold foods and liquids since your tooth may be sensitive to temperature changes. If your tooth is chipped or cracked, or if there is a large open cavity, applyoil of cloves(available mito-kml-yoozjev in drug stores) directly to the tooth to reduce pain. Some pharmacies carry an jstc-sag-deywxqc "toothache kit". This contains oil of cloves and a paste, which can be applied over the exposed tooth to decrease sensitivity. Apply an ice pack (ice cubes in a plastic bag, wrapped in a towel) over the injured area for 20 minutes every 12 hours the first day for pain relief. Continue this 34 times a day until the pain and swelling goes away. You may use acetaminophen or ibuprofen to control pain, unless another medicine was prescribed. If you have chronic liver or kidney disease or ever had a stomach ulcer or GI bleeding, talk with your doctor before using these medicines. An antibiotic will be prescribed. Take it as directed until completed, even if you are feeling better sooner. Follow-up care Follow up as directed with a dentist or oral surgeon. Even though your pain may improve with the treatment given today, only a dentist or oral surgeon can provide full treatment for this problem. When to seek medical care Get prompt medical attention or contact your doctor if any of the following occur: Your face or eyelid becomes swollen or red Pain worsens or spreads to the neck Fever over 100.4F (38.0C) Unusual drowsiness; headache or stiff neck; weakness, or fainting Pus drains from the gum or tooth Difficulty talking, swallowing or breathing Unable to open your mouth wide You have been given the following additional information: Tooth Abscess (Electronically signed by Shruthi Jacobsen A.R.N.P. 12/29/2016 20:23)
== END 2016-12-29 20:20 | disposition home or self-care (01) ==
LOC: ED SRH 20:00
DX: K04.7 Periapical abscess without sinus (principal); F17.210 Nicotine dependence, cigarettes, uncomplicated